=== PATIENT | male | born 2000 | race Caucasian/White ===

== ENCOUNTER 2022-01-24 19:30 | Emergency (ER) | payer BC, OTHER ==
[~2022-01-24] VITALS: Ht 190.5 cm; Wt 111.8 kg
[2022-01-24] MEDS ORDERED: DEXT30CA4 PO (19:45)
[2022-01-24] MEDS ORDERED: ONDANSETRON 4 MG (ZOFRAN) ORAL DISSOLVE TAB PO STA ×2 (19:50→19:52)
--- NOTE | 2022-01-24 19:52 | ED Abdominal Pain ---
General Chief Complaint: Abdominal/GI Problems Stated Complaint: CHILLS/BODY ACHES,HEADACHE Source of Information: Patient Exam Limitations: No Limitations History of Present Illness Date Seen by Provider: Jan 24, 2022 Time Seen by Provider: 07:30 Initial Comments Patient is a 21-year-old male presents with body aches chills, headache nausea and vomiting. Symptom onset began 8 hours prior to arrival. Patient has vomited multiple times. He does report feeling lightheaded in the shower earlier today. With abdominal cramping with vomiting. No hematemesis coffee- ground or bilious emesis. No fever, no diarrhea or bloody stools. no other acute symptoms or complaints. Timing/Duration: 1/2 Hour Severity/Quality: Moderate Location: Other Radiation: Shoulder Activities at Onset: Other Modifying Factors: Improves With Other Associated Symptoms: Other Allergies and Home Medications Allergies Coded Allergies: No Known Drug Allergies (Unverified , 01/24/22) Patient Home Medication List Home Medication List Reviewed: Yes Dextroamphetamine/Amphetamine (Dextroamp-Amphet ER 30 mg Cap) 30 Mg Cap.er.24h, 30 MG PO DAILY, (Reported) Entered as Reported by: CARMENCITA PRUITT on 01/24/221944 Last Action: New Order Review of Systems Review of Systems Constitutional: see HPI EENTM: See HPI Respiratory: See HPI Cardiovascular: See HPI Gastrointestinal: See HPI Genitourinary: See HPI Musculoskeletal: see HPI Past Rpwmmlm-Eqjiyt-Podkoa Hx Patient Social History Tobacco Use?: No Smoking Status: Never a Smoker Smokeless Tobacco Frequency: Never a User Use of E-Cig and/or Vaping dev: No Use of E-Cig and/or Vaping Noah: Never a User Substance use?: No Additional substance use comme: Patient is on prescription Adderall Alcohol Use?: No Pt feels they are or have been: No Past Medical History Surgery/Hospitalization HX: ADHD Physical Exam Vital Signs Capillary Refill : Height/Weight/BMI Height: '" Weight: lbs. oz. kg; BMI Method: General Appearance: no apparent distress HEENT: PERRL/EOMI Neck: full range of motion, supple Respiratory: lungs clear, normal breath sounds, no respiratory distress Cardiovascular: regular rate, rhythm, no edema Gastrointestinal: non tender, soft Extremities: non-tender, normal inspection Neurologic/Psychiatric: alert, oriented x 3 Skin: warm/dry, cyanosis Progress/Results/Core Measures Results/Orders My Orders Orders - RAFAEL MASON DO Famotidine Tablet (Pepcid Tablet) (01/24/22 20:00) Ondansetron Oral Dissolve Tab (Zofran (01/24/22 19:50) Ondansetron Oral Dissolve Tab (Zofran (01/24/22 19:52) Departure Communication (Admissions) Symptoms consistent with acute GI illness prevalent in the community. Nausea medication given in the ED with clinical improvement. Abdomen soft, nontender. Patient able to tolerate fluids. Recommendations are supportive care watchful waiting and PCP follow-up as needed. Return precautions reviewed. Patient verbalizes understanding and agreement with discharge i instructions upon discharge. Impression Primary Impression: Abdominal pain Additional Impression: Nausea and vomiting Disposition: HOME, SELF-CARE Condition: Stable Departure-Patient Inst. Decision time for Depature: 20:03 Referrals: SANG NEFF DO (PCP/Family) Primary Care Physician Patient Instructions: Nausea and Vomiting, Adult, Abdominal Pain, Adult ED Add. Discharge Instructions: You were evaluated in the emergency department for vomiting and body aches. Your symptoms are consistent with a stomach illness prevalent in the community. Please take Zofran for nausea every 4-6 hours and Compazine as needed for additional relief. Drink clear liquids only for the next 6 to 12 hours and then increase to bland diet as tolerated. Return to the ED if new or worsening symptoms. All discharge instructions reviewed with patient and/or family. Voiced understanding. Scripts Famotidine (Pepcid) 20 Mg Tablet 20 MG PO BID, #20 TAB Prov: RAFAEL MASON DO 01/24/22 Prochlorperazine Maleate (Compazine) 10 Mg Tablet 10 MG PO Q8H, #10 TAB Prov: RAFAEL MASON DO 01/24/22 Ondansetron (Ondansetron Odt) 4 Mg Tab.rapdis 8 MG PO Q6H, #12 TAB Prov: RAFAEL MAOSN DO 01/24/22 RAFAEL MASON DO Jan 24, 2022 19:52
[2022-01-24] MEDS ORDERED: FAMOTIDINE 20 MG (PEPCID) TABLET PO ONE (20:00)
[2022-01-24] MEDS ORDERED: ONDA4TAB11 PO (20:06)
[2022-01-24] MEDS ORDERED: FAMO-119 PO (20:06)
[2022-01-24] MEDS ORDERED: PROC-1 PO (20:06)
[2022-01-24] MEDS ORDERED: RX-ONDANSETRON 4 MG ODT (ZOFRAN) PPK #4 PO STA (20:07)
[2022-01-24 20:11] VITALS: BP 104/56
== END 2022-01-24 20:11 | disposition home or self-care (01) ==
LOC: ER FS 19:31
DX: R10.9 Unspecified abdominal pain (principal); R11.2 Nausea with vomiting, unspecified
CPT/HCPCS: 99283